=== PATIENT | female | born 1965 | race Caucasian/White ===

== ENCOUNTER 2020-06-19 02:41 | Emergency (ER) | payer OTHER ==
--- OUTSIDE RECORDS SUMMARY | 2020-06-19 02:48 | XMS ---
:1965 Author Organization [facility] Care Team Providers Name Role Phone Thalappillil, Alia CHEMICAL DETECTION EXPERT Unavailable Unavailable Thalappillil, Alia CHEMICAL DETECTION EXPERT Unavailable Unavailable Thalappillil, Alia CHEMICAL DETECTION EXPERT Unavailable Unavailable Thalappillil, Alia CHEMICAL DETECTION EXPERT Unavailable Unavailable Thalappillil, Alia CHEMICAL DETECTION EXPERT Unavailable Unavailable Thalappillil, Alia CHEMICAL DETECTION EXPERT Unavailable Unavailable Thalappillil, Alia CHEMICAL DETECTION EXPERT Unavailable Unavailable Thalappillil, Alia CHEMICAL DETECTION EXPERT Unavailable Unavailable Thalappillil, Alia CHEMICAL DETECTION EXPERT Unavailable Unavailable ZE, KAUSIK Unavailable Unavailable Re-disclosure Warning The records that you are about to access may contain information from federally- assisted alcohol or drug abuse programs. If such information is present, then the following federally mandated warning applies: This information has been disclosed to you from records protected by federal confidentiality rules (42 CFR part 2). The federal rules prohibit you from making any further disclosure of this information unless further disclosure is expressly permitted by the written consent of the person to whom it pertains or as otherwise permitted by 42 CFR part 2. A general authorization for the release of medical or other information is NOT sufficient for this purpose. The Federal rules restrict any use of the information to criminally investigate or prosecute any alcohol or drug abuse patient.The records that you are about to access may contain highly sensitive health information, the redisclosure of which is protected by Article 27-F of the [facility] Public Health law. If you continue you may haveaccess to information: Regarding HIV / AIDS; Provided by facilities licensed or operated by the [facility] Office of Mental Health; or Provided by the [facility] Office for People With Developmental Disabilities. If such information is present, then the following [facility] mandated warning applies: This information has been disclosed to you from confidential records which are protected by state law. State law prohibits you from making any further disclosure of this information without the specific written consent of the person to whom it pertains, or as otherwise permitted by law. Any unauthorized further disclosure in violation of state law may result in a fine or nursing home sentence or both. A general authorization for the release of medical or other information is NOT sufficient authorization for further disclosure. Encounters Encounter Providers Location Date Indications Data Source(s ) Outpatient Attender: Alia Neil 04/01/2020 [facility] maryuri Fuentes 02:47:[address] FNPAdmitter: Alia Fuentes FNPReferrer: Alia Fuentes CHEMICAL DETECTION EXPERT Outpatient Attender: ZE 12/25/2019 [facility]: [facility], 02:35:00 PM [facility] Z03.818 Medications Medication Brand Start Product Dose Route Administrative Pharmacy [facility] Indications Reaction Description Data Name Date Form Instructions Instructions Source(s) Artificial Artifi 09/24/ active Artifici al eCW3 Tears 1-0.3 cial 2020 Tears 1-0.3 ( [facility] % Tears 12:00: % [place] 1-0.3 00 AM Health % EST Care) Artificial Artifi 09/24/ active Artifici al eCW3 Tears 1-0.3 cial 2020 Tears 1-0.3 ( [facility] % Tears 12:00: % [place] 1-0.3 00 AM Health % EST Care) Ketotifen Ketoti .0 active Ketotifen eCW3 0.25 MG/ML 2019 {drop Fumarate ([facility] Fumara 12:00: _into 0.025 % R iver Solution te 00 AM [facility] Ketotifen 0.025 EST cted_ Care) Fumarate % eye} 0.025 % Ketotifen Ketoti .0 active Ketotifen eCW3 0.25 MG/ML 2019 {drop Fumarate ([facility]umara 12:00: _into 0.025 % R iver Solution te 00 AM [facility] Ketotifen 0.025 EST cted_ Care) Fumarate % eye} 0.025 % Insurance Providers Payer name Policy type Policy ID Covered Covered democrat's Policy P macey / Coverage democrat ID relationship to [place] ormation type el [place] [id number] SP [id number] MEDICAID COMM PLAN HMO MEDICAID W [id number] [facility] OP Problems, Conditions, and Diagnoses Code Display Name Description Problem Type Effective Data Sour ce(s) Dates H52.4 Presbyopia of Presbyopia of Problem 10/18/2019 eCW3 (Hu dson both eyes both eyes 12:00:00 AM [facility]) H04.123 Dry eyes, Dry eyes, Problem 09/24/2019 eCW3 ([facility] bilateral bilateral 12:00:00 AM [facility] Care) R06.02 Shortness of SHORTNESS OF Diagnosis 04/01/2020 [facility] breath BREATH 02:47:00 [facility] EDT Z03.818 Encounter for ENCNTR FOR OBS Diagnosis 12/25/2019 [facility] observation for FOR SUSP EXPSR TO 02:35:00 PM [facility] suspected OTH BIOLG AGENTS EDT Care Cor poration exposure to other RULED OUT biological agents ruled out Results ID Date Data Source [id number] 12/25/2019 12:00:00 AM EDT [facility] Name Value Range Interpretation Code Description Data Claudia rce(s) Supporting Document(s ) 2019-nCoV [facility] RNA XXX TUAN+probe- Imp This lab was ordered by [facility] and reported by [employer] Procedure Patient Treatment Plan of Care Planned Activity Planned Date Details Description Data Source (s) Artificial Tears 1-0.3 09/24/2019 12:00:00 eCW3 ([place] % AM EST Health Care) Artificial Tears 1-0.3 09/24/2019 12:00:00 eCW3 ([place] % AM EST Health Care)
--- NOTE | 2020-06-19 02:57 | PDOC ---
History of Present Illness - General Stated Complaint: ABDOMINAL PAIN Time Seen by Provider: 06/19/20 02:52 - History of Present Illness Initial Comments: 06/19/20 03:27 55 yo female with no significant pmh presents to the ED for epigastric pain that started one hour prior to ED arrival. Pt explains she has never had this pain before and when she was sitting on the toilet making bowel movement she intense sharp pain in her epigastric area. Pt explains the pain at the time of the incident was 10/10 in pain. Pt after putting some ice on the area pain went down to 8/10. Pt does explain she has some metalic taste in her mouth that is been going on for the past few days. Pt also explained she did have some chicken and rice leftovers from her aunts place that no one else had and had a few episodes of diarrhea from it. PT currently denies any nausea, vomiting, constipation, shortness of breath, chest pain, pain radiating to the back. PMH: Denies Meds: denies PSH: denies Allergies: denies Social: denies smoking drugs or alcohol PCP: Dr. Alia Page Past History - Medical History Allergies/Adverse Reactions: Allergies Allergy/AdvReac Type Severity Reaction Status Date / Time No Known Allergies Allergy Verified 06/19/20 03:15 Review of Systems - Review of Systems Comments:: 06/19/20 03:35 GENERAL/CONSTITUTIONAL: No fever or chills. No weakness. HEAD, EYES, EARS, NOSE AND THROAT: No change in vision. No ear pain or discharge. No sore throat. CARDIOVASCULAR: No chest pain or shortness of breath RESPIRATORY: No cough, wheezing, or hemoptysis. GASTROINTESTINAL: No nausea, vomiting. Diarrhea and epigastric pain GENITOURINARY: No dysuria, frequency, or change in urination. MUSCULOSKELETAL: No joint or muscle swelling or pain. No neck or back pain. SKIN: No rash NEUROLOGIC: No headache, vertigo, loss of consciousness, or change in strength/sensation. ENDOCRINE: dec weight ALLERGIC/IMMUNOLOGIC: No hives or skin allergy. *Physical Exam - Physical Exam 06/19/20 03:37 GENERAL: Awake, alert, and fully oriented, in moderate distress HEAD: No signs of trauma, normocephalic, atraumatic EYES: PERRLA, EOMI, sclera anicteric, conjunctiva clear ENT: Auricles normal inspection, hearing grossly normal, nares patent, oropharynx clear without exudates. Moist mucosa NECK: Normal ROM, supple, no lymphadenopathy, JVD, or masses LUNGS: No distress, speaks full sentences, clear to auscultation bilaterally HEART: Regular rate and rhythm, normal S1 and S2, no murmurs, rubs or gallops, peripheral pulses normal and equal bilaterally. ABDOMEN: Normoactive bowel sounds, tender to palpate on epigastric area and RUQ. Positive sandhu sign EXTREMITIES : Normal inspection, Normal range of motion, no edema. No clubbing or cyanosis. NEUROLOGICAL: Cranial nerves II through XII grossly intact. Normal speech SKIN: Warm, Dry, normal turgor, no rashes or lesions noted Heart Score/ECG Review - ECG Impressions Comment:: 06/19/20 03:43 Normal sinus rhythm at 75 bpm Normal GA, QRS, and QT interval T wave inversion in V2 T wave flattening in lead III Normal axis ED Treatment Course - LABORATORY CBC & Chemistry Diagram: 06/19/20 03:40 06/19/20 03:40 Medical Decision Making - Medical Decision Making 06/19/20 03:38 55 yo female with no significant pmh presents to the ED for epigastric pain that started one hour ago. Will rule out: pancreatitis, cholecystitis, GERD, gastritis, ACS, Food poisoning/ viral gastritis Plan: CBC, CMP, ekg, trop, cxr, lipase, UA, and urine Will give pepcid, maalox, and viscous lidocaine 06/19/20 04:31 Pt still feeling severe pain will give bentol and reassess. Pt nontender to palpation. 06/19/20 05:09 Pt feels better after bentol. Will dc home with return precautions. Discharge - Discharge Information Problems reviewed: Yes Clinical Impression/Diagnosis: Food poisoning Condition: Improved - Follow up/Referral Referrals: Alia Fuentes MD [Primary Care Provider] - Radha Garcia DO [Staff Physician] - - Patient Discharge Instructions Patient Printed Discharge Instructions: Food Poisoning Additional Instructions: You came to the ED for abdominal pain and diarrhea. This is most likely a viral gastritis due to food poisoning. At the ED we did labs which were within normal limits. We also took an xray and ekg which were grossly normal We also gave you medication for the pain. At home please take tums or pepcid for pain. Please also for next twenty four hours stick with bland food and liquid. Please follow up with your primary care physician within the next few days. We also gave you a Radiation Control Health Physicist to follow up with if symptoms persists. If you have any of the following please return: - worsening stomach pain - unable to eat anything by mouth - intractable vomiting For any emergent symptoms please return to the ED. - Post Discharge Activity
[2020-06-19] MEDS ORDERED: FAMOTIDINE 20 MG/50 ML IVPB 20 MG/50 ML MG IVPB ONE ×2 (03:10→03:18)
[2020-06-19] MEDS ORDERED: MAG HYDROX/AL HYDROX/SIMETH 30 ML UNIT-DOSE CUP PO ONE (03:11)
[2020-06-19] MEDS ORDERED: LIDOCAINE VISCOUS 2% ORAL/TOP 20 ML UNIT-DOSE CUP MM ONE (03:11)
[2020-06-19] MEDS ORDERED: MAG HYDROX/AL HYDROX/SIMETH 30 ML UNIT-DOSE CUP ONE (03:18)
[2020-06-19] MEDS ORDERED: LIDOCAINE VISCOUS 2% ORAL/TOP 20 ML UNIT-DOSE CUP ONE (03:18)
--- NOTE | 2020-06-19 03:21 | PDOC ---
Attending Attestation - Resident Resident Name: BhupendraalessandroTruman parra - ED Attending Attestation I have performed the following: I have examined & evaluated the patient, The case was reviewed & discussed with the resident, I agree w/resident's findings & plan - HPI HPI: 06/19/20 03:22 Pt comes with epigastric pain that woke her up and she felt that she was going to . She states that she ate some chicken prepared by her aunt and that was left over and she was the only one who ate it. This could be food poisoning. Pt had a bitter taste in her mouth that she experienced last week also; She states that she lost a lot of weight recently; her RUQ pain could be GB stones. She has never had any surgeries. 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 She has no hernias that I felt. Pt has no fever and no chills - Physicial Exam PE: 06/19/20 03:29 Pt has no fever or chills Pt has normal vitals Pt is not diaphoretic; but she had sweating earlier. Pt has normal heart and lungs and she has normal flank exam Pt has pain in epigastric area and slightly in the RUQ - Medical Decision Making 06/19/20 03:31 meds and EKG and IVF and labs Pt will get a CXR since the last one was 3 years ago 06/19/20 04:36 Pt has normal labs; only WBC is elevated. This is not her liver or GB; this is not her kidneys Pt has no anemia Heart enzymes normal Pt has WBC elevation that could be due to food posoning or gastritis She still has epigastric pain and she will get bentyl. 06/19/20 19:27 Pt will be signed out to the day team Discharge - Discharge Information Problems reviewed: Yes Clinical Impression/Diagnosis: Food poisoning Condition: Improved - Follow up/Referral Referrals: Radha Garcia DO [Staff Physician] - Alia Fuentes MD [Primary Care Provider] - - Patient Discharge Instructions Patient Printed Discharge Instructions: Food Poisoning Additional Instructions: You came to the ED for abdominal pain and diarrhea. This is most likely a viral gastritis due to food poisoning. At the ED we did labs which were within normal limits. We also took an xray and ekg which were grossly normal We also gave you medication for the pain. At home please take tums or pepcid for pain. Please also for next twenty four hours stick with bland food and liquid. Please follow up with your primary care physician within the next few days. We also gave you a Lead Recoverer to follow up with if symptoms persists. If you have any of the following please return: - worsening stomach pain - unable to eat anything by mouth - intractable vomiting For any emergent symptoms please return to the ED. - Post Discharge Activity
[2020-06-19 03:52] LABS: BASO % 0.3 % (0-2.0); EOS % 0.9 % (0-4.5); HEMATOCRIT 34.1 % (32.4-45.2); HEMOGLOBIN 11.5 GM/dL (10.7-15.3); LYMPH % 16.8 % (8-40); MCH 31.4 pg (25.7-33.7); MCHC 33.6 g/dl (32.0-36.0); MEAN CELL VOLUME 93.4 fl (80-96); MEAN PLT VOLUME 7.6 fl (7.5-11.1); MONO % 5.6 % (3.8-10.2); NEUT % 76.4 % (42.8-82.8); PLATELET COUNT 319 K/MM3 (134-434); RBC 3.65 M/mm3 (3.60-5.2); RDW 12.6 % (11.6-15.6); WHITE BLOOD COUNT 13.4 K/mm3 (4.0-10.0)
[2020-06-19 03:58] VITALS: BMI 26.4
[2020-06-19 04:13] LABS: CHLORIDE 107 mmol/L (98-107); POTASSIUM 4.1 mmol/L (3.5-5.1); SODIUM 140 mmol/L (136-145)
[2020-06-19 04:15] LABS: ALBUMIN 3.4 g/dl (3.4-5.0); CALCIUM 8.5 mg/dL (8.5-10.1)
[2020-06-19 04:16] LABS: ANION GAP 6 MMOL/L (8-16); BLOOD UREA NITROGEN 13.5 mg/dL (7-18); CO2 26 mmol/L (21-32); GLUCOSE,RANDOM 117 mg/dL (74-106); LIPASE 152 U/L (73-393)
[2020-06-19 04:18] LABS: SGPT/ALT 26 U/L (13-61)
[2020-06-19 04:19] LABS: CREATININE 0.6 mg/dL (0.55-1.3); SGOT/AST 22 U/L (15-37)
[2020-06-19 04:20] LABS: BILIRUBIN,TOTAL 0.2 mg/dL (0.2-1)
[2020-06-19 04:21] LABS: ALK PHOS 97 U/L (45-117)
[2020-06-19] MEDS ORDERED: DICYCLOMINE HCL 20 MG TABLET PO ONE (04:35)
[2020-06-19] MEDS ORDERED: ACETAMINOPHEN 1000 MG/100 ML VIAL (NON FORMULARY) IVPB ONE (04:35)
[2020-06-19] MEDS ORDERED: DICYCLOMINE HCL 10 MG CAPSULE ONE (04:49)
[2020-06-19 05:02] LABS: EPI CELLS 15 /uL (0-25.1); HYALINE CASTS 1 /uL (0-3.1); URINE APPEARANCE CLEAR; URINE BACTERIA 133 /uL (0-1359); URINE BILIRUBIN NEGATIVE (NEGATIVE); URINE COLOR YELLOW; URINE GLUCOSE (UA) NEGATIVE (NEGATIVE); URINE KETONE NEGATIVE (NEGATIVE); URINE LEUK ESTERASE NEGATIVE (NEGATIVE); URINE NITRITE NEGATIVE (NEGATIVE); URINE PROTEIN NEGATIVE (NEGATIVE); URINE RBC 14 /uL (0-23.9); URINE UROBILINOGEN 0.2 mg/dL (0.2-1.0); URINE WBC 9 /uL (0-25.8)
[2020-06-19 06:14] VITALS: BP 110/48; PULSE 66; TEMP 98.8
--- NOTE | 2020-06-19 14:42 | EKG ---
Test Reason : Blood Pressure : / mmHG Vent. Rate : 075 BPM Atrial Rate : 075 BPM P-R Int : 152 ms QRS Dur : 076 ms QT Int : 380 ms P-R-T Axes : 048 047 031 degrees QTc Int : 424 ms NORMAL SINUS RHYTHM SEPTAL INFARCT , AGE UNDETERMINED ABNORMAL ECG NO PREVIOUS ECGS AVAILABLE Confirmed by MD SOMMER, SUNIL ([id number]) on 06/19/2020 2:42:30 PM Referred By: Confirmed By:SUNIL NOVOA MD
== END 2020-06-19 06:20 ==
LOC: JER 02:41
PROC: 3E033GC Introduction of Other Therapeutic Substance into Peripheral Vein, Percutaneous Approach (ICD-10-PCS; principal; 2020-06-19)
DX: T62.91XA Toxic effect of unspecified noxious substance eaten as food, accidental (unintentional), initial encounter (principal)
CPT/HCPCS: 36415; 71045-TC-FY; 80053; 81003; 82550; 83690; 84484; 84703; 85025; 93005; 93010; 99285-25